=== PATIENT | female | born 1970 ===

== ENCOUNTER 2024-01-28 06:50 | Day surgery (SDC) | payer OTHER ==
[2024-01-20 10:16] LABS: PH,URINE 5.5 (5.0-8.0); URINE APPEARANCE Clear; URINE BILIRRUBIN Negative (NEGATIVE); URINE BLOOD Small; URINE COLOR Yellow; URINE GLUCOSE Negative (NEGATIVE); URINE LEUKOCYTE Negative; URINE NITRATE Negative; URINE PROTEIN Negative (NEGATIVE); URINE UROBILINOGEN 0.2 E.U./dl
[2024-01-20 10:17] LABS: URINE BACTERIA 532.9 uL (0.0-1933); URINE EPITHELIAL CELLS 16.5 uL (0.0-38.8); URINE RBC 14.2 uL (0.0-20.8); URINE WBC 3.5 uL (0.0-23.2)
[2024-01-20 10:17] LABS: HEMOGLOBIN 13.5 g/dL (12.0-15.00); MEAN CELL VOLUME 88.9 fL (80.00-100.00); MEAN CORPUSCULAR HEMOGLOBIN 30.8 pg (27.00-32.0); MEAN CORPUSCULAR HGB CONC 34.6 g/dl (32.0-36.0); PLATELET COUNT 332 K/uL (150-450); RED BLOOD COUNT 4.38 M/uL (4.00-6.00); RED CELL DISTRIBUTION WIDTH 14.1 % (11.5-14.5)
[2024-01-20 10:52] LABS: INR 0.96; PARTIAL THROMBOPLASTIN TIME 29.7 SECONDS (22.0-34.0)
[2024-01-20 11:06] LABS: ALBUMIN 4.1 gm/dL (3.4-5.0); BILIRUBIN TOTAL 1.87 mg/dL (0.3-1.2); CREATININE SERUM 0.73 mg/dL (0.55-1.02); GFR 83.72; GLOBULINA 3.4 G/DL (2.4-3.5); POTASSIUM 4.81 mEq/L (3.5-5.1); TOTAL PROTEIN 7.5 gm/dL (6.4-8.2)
[~2024-01-28] VITALS: Ht 170.2 cm; Wt 78.5 kg
[~2024-01-28 06:50] MED LIST: LIPITOR20 MG PO
[2024-01-28] MEDS ORDERED: CEFAZOLIN SODIUM 1,000 MG VIAL ONE (14:11)
[2024-01-28] MEDS ORDERED: BUPIVACAINE HCL/PF 0.5% 30ML ML ONE (17:44)
[2024-01-28] MEDS ORDERED: LIDOCAINE HCL 1%/Epi 20ML VIAL IJ ONE (17:45)
[2024-01-28] MEDS ORDERED: CEFAZOLIN SODIUM 1,000 MG VIAL IV SCH (19:00)
[2024-01-28] MEDS ORDERED: ONDANSETRON HCL 2 MG/ML VIAL ONE (21:18)
[2024-01-29] MEDS ORDERED: BUPIVACAINE HCL 30 ML VIAL IJ ONE (15:45)
[2024-01-29] MEDS ORDERED: CEFAZOLIN SODIUM 1,000 MG VIAL IV SCH (15:45)
[2024-01-29] MEDS ORDERED: LIDOCAINE HCL 1%/Epi 20ML VIAL IJ ONE (15:45)
== END 2024-01-28 22:35 | disposition home or self-care (01) ==
LOC: CIR.AMB 06:50
PROVIDERS: ATTEND Orthopaedic Surgery Hand Surgery
DX: M18.11 Unilateral primary osteoarthritis of first carpometacarpal joint, right hand (principal); E11.9 Type 2 diabetes mellitus without complications; Z20.822 Contact with and (suspected) exposure to COVID-19; I10 Essential (primary) hypertension; Z91.013 Allergy to seafood